=== PATIENT | female | born 1965 | race Caucasian/White ===

== ENCOUNTER 2018-03-05 13:40 | Emergency (ER) | payer BC ==
--- NOTE | 2018-03-05 14:07 | UC ---
Respiratory Complaint HPI - HPI Summary HPI Summary: 52 y/o female presents to the urgent care c/o productive cough w/ yellowish phlegm, sore throat , body aches, nasal congestion w/ pressure, and fever since 03/01/2018. Pt reports fever is on and off. Pain w/ swallowing is /10. Pt has taking OTC medications to alleviate symptoms w/o any relief. Pt states symptoms started w/ common cold and now it seems to move to her chest. Pt denies SON, wheezing, chest pain, abdominal pain , N/V/D. LMP: 02/04/2018 on control. - History of Current Complaint Hx Obtained From: Patient Hx Last Menstrual Period: 01/26/2018 Onset/Duration: Gradual Onset, Lasting Days - 5 days, Still Present, Worse Since - yesterday Timing: Constant Severity Initially: Mild Severity Currently: Moderate Pain Intensity: 7 - sore throat Pain Scale Used: 0-10 Numeric Character: Cough: Nonproductive Aggravating Factors: Recumbent Position Alleviating Factors: OTC Meds Associated Signs And Symptoms: Positive: Fever, Chills, URI, Nasal Congestion, Sinus Discomfort. Negative: Dyspnea - Risk Factors Pulmonary Embolism Risk Factors: Negative Cardiac Risk Factors: Negative Pseudomonas Risk Factors: Negative Tuberculosis Risk Factors: Negative <Yumiko Pathak - Last Filed: 03/06/18 00:19> <Douglas Aceves - Last Filed: 03/06/18 07:11> - History of Current Complaint Chief Complaint: UCRespiratory Stated Complaint: URI Time Seen by Provider: 03/05/18 13:56 - Allergies/Home Medications Allergies/Adverse Reactions: Allergies Allergy/AdvReac Type Severity Reaction Status Date / Time codeine Allergy Vomiting Verified 03/05/18 13:54 Home Medications: Home Medications Phenylephrine/Dm/Acetaminop/GG [Severe Cold Multi-Symptom Cplt] 03/05/18 [ History] PMH/Surg Hx/FS Hx/Imm Hx Previously Healthy: Yes - Pt denies PMHX - Surgical History Surgical History: None - Family History Known Family History: Positive: Hypertension - Social History Occupation: Employed Full-time Lives: With Family Alcohol Use: Daily Substance Use Type: None Smoking Status (MU): Never Smoked Tobacco <Yumiko Pathak - Last Filed: 03/06/18 00:19> Review of Systems Constitutional: Fever, Chills, Other - body aches Skin: Negative Eyes: Negative ENT: Sore Throat, Nasal Discharge, Sinus Congestion, Sinus Pain/Tenderness Respiratory: Cough - dry Cardiovascular: Negative Gastrointestinal: Negative Genitourinary: Negative Motor: Negative Neurovascular: Negative Musculoskeletal: Negative Neurological: Headache Psychological: Negative Is Patient Immunocompromised?: No All Other Systems Reviewed And Are Negative: Yes <AckermanNeetuYumiko gray - Last Filed: 03/06/18 00:19> Physical Exam - Summary Physical Exam Summary: VITAL SIGNS: Reviewed. GENERAL: Patient is a well developed and nourished female who is sitting comfortable in the examining table. Patient is not in any acute respiratory distress. HEAD AND FACE: No signs of trauma. No ecchymosis, hematomas or skull depressions. No sinus tenderness. EYES: PERRLA, EOMI x 2, No injected conjunctiva, no nystagmus. No photophobia. EARS: Hearing grossly intact. Ear canals and tympanic membranes are within normal limits. Nose: edematous and erythematous nasal mucosa w/ clear nasal discharge. MOUTH: Positive no erythema, no tonsillar enlargement. Uvula in midline. NECK: Supple, trachea is midline, Positive anterior cervical lymphadenopathy, no JVD, no carotid bruit, no c-spine tenderness, neck with full ROM. No meningeal signs, no Kernig's or brudzinskis signs. CHEST: Symmetric, no tenderness at palpation LUNGS: Positive breath sound bilaterally. Mild posterior upper lungs scattered rhonchi, No wheezing or crackles. CVS: Regular rate and rhythm, S1 and S2 present, no murmurs or gallops appreciated. ABDOMEN: Soft, non-tender. No signs of distention. No rebound no guarding, and no masses palpated. Bowel sounds are normal. EXTREMITIES: FROM in all major joints, no edema, no cyanosis or clubbing. NEURO: Alert and oriented x 3. No acute neurological deficits. Speech is normal and follows commands. SKIN: Dry and warm Triage Information Reviewed: Yes Vital Signs: Initial Vital Signs Temp 99.2 F 03/05/18 13:49 Pulse 73 03/05/18 13:49 Resp 16 03/05/18 13:49 BP 159/114 03/05/18 13:49 Pulse Ox 98 07/02/18 13:49 <Yumiko Pathak - Last Filed: 03/06/18 00:19> Vital Signs: Initial Vital Signs Temp 99.2 F 03/05/18 13:49 Pulse 73 03/05/18 13:49 Resp 16 03/05/18 13:49 BP 159/114 03/05/18 13:49 Pulse Ox 98 03/05/18 13:49 <Douglas Aceves - Last Filed: 03/06/18 07:11> Diagnostic Evaluation - Laboratory O2 Sat by Pulse Oximetry: 98 <Yumiko Pathak - Last Filed: 03/06/18 00:19> Respiratory Course/Dx - Course Course Of Treatment: 52 y/o female presents to the urgent care c/o productive cough w/ yellowish phlegm, sore throat , body aches, nasal congestion w/ pressure, and fever since 03/01/2018. Pt reports fever is on and off. Pain w/ swallowing is 02/11. Pt has taking OTC medications to alleviate symptoms w/o any relief. Pt states symptoms started w/ common cold and now it seems to move to her chest. Pt denies SON, wheezing, chest pain, abdominal pain , N/V/D. LMP: 02/04/2018 on control. Hx obtained. Pt w/ mild upper posterior lungs rhochi. Pt declined chest X-ray since her insurance done't cover for it. Influenza A&B ordered: negative. Pt with Acute bronchitis on examination. Pt Rx Z-temo PO and Tessalon tabs for cough. Pt advised to increase fluid intake and eat well. if not improvement or worsening of symptoms to return to the urgent care or f/u with PCP for further management. Pt's BP is elevated today advised to decrease salt in diet, monitor BP and f/u with PCP for further management. Pt understood and agreed with plan of care. - Differential Dx/Diagnosis Differential Diagnosis/HQI/PQRI: Asthma, Bronchitis, Influenza, Sinusitis, Other - pneumonia Provider Diagnoses: 1- Acute bronchitis. 2-cough. 3- Elevated BP w/o Hx of HTN <Yumiko Pathak - Last Filed: 03/06/18 00:19> Discharge - Sign-Out/Discharge Documenting (check all that apply): Discharge/Admit/Transfer - D/C home - Billing Disposition and Condition Condition: STABLE Disposition: Home <Yumiko Pathak - Last Filed: 03/06/18 00:19> - Billing Disposition and Condition Condition: STABLE Disposition: Home <Douglas Aceves - Last Filed: 03/06/18 07:11> - Discharge Plan Condition: Stable Disposition: HOME Prescriptions: Azithromyxin TEMO (NF) [Z-Temo (Zithromax) 250 mg tabs #6] 2 tab PO .TODAY, THEN 1 DAILY #6 tab Benzonatate CAP* [Tessalon 100 MG CAP*] 100 mg PO TID #21 cap Patient Education Materials: Acute Bronchitis (ED), Low-Sodium Diet (ED) Referrals: [facility] [place] [facility] [Outside] - 3 Days Additional Instructions: Influenza A&B is negative 1-Please take full course of antibiotic to avoid resistance. 2-Take Tessalon PO tabs as directed to alleviate cough. Increase fluid intake, rest and eat well. 3- If symptoms do not improve or worsen or your develop SOB with fever and severe wheezing please go immediately to the ER further evaluation and treatment. 4- F/u with your PCP in 3 days if not improving for further management. 5-Your BP is elevated today. please decrease salt in your diet, monitor BP and if it continues to be elevated please f/u with your PCP for further management Per institutional requirements, I have reviewed the chart, however, I was not consulted specifically or made aware of this patient by the above midlevel provider. I did not personally evaluate, interact with , or disposition this patient.
== END 2018-03-05 15:11 | disposition home or self-care (01) ==
LOC: UCEAST 13:40
DX: J20.9 Acute bronchitis, unspecified (principal); R05 Cough; R03.0 Elevated blood-pressure reading, without diagnosis of hypertension; Z88.5 Allergy status to narcotic agent
CPT/HCPCS: 99202; G0463

== ENCOUNTER 2018-03-16 16:40 | Emergency (ER) | payer BC ==
[2018-03-16 16:55] VITALS: BP 154/104
--- NOTE | 2018-03-16 17:17 | UC ---
Complaint Female HPI - HPI Summary HPI Summary: 4 days of pain and burning with urination,, has low back but no flank pain, no fevers, chills, nausea or vomiting - History Of Current Complaint Chief Complaint: UCGU Stated Complaint: BURNING URINATION Time Seen by Provider: 03/16/18 17:01 Hx Obtained From: Patient Hx Last Menstrual Period: [id number] ?: No Onset/Duration: Gradual Onset, Lasting Days - 4, Still Present Timing: Constant Pain Intensity: 4 Pain Scale Used: 0-10 Numeric Character: Burning Aggravating Factor(s): Urination Alleviating Factor(s): Nothing Associated Signs And Symptoms: Positive: Negative - Allergies/Home Medications Allergies/Adverse Reactions: Allergies Allergy/AdvReac Type Severity Reaction Status Date / Time codeine Allergy Vomiting Verified 03/16/18 16:56 Home Medications: Home Medications Ibuprofen TAB* [Motrin TAB* 400 MG] 400 mg PO Q6H PRN 03/16/18 [History Confirmed 03/16/18] PMH/Surg Hx/FS Hx/Imm Hx Previously Healthy: Yes - Surgical History Surgical History: None - Family History Known Family History: Positive: Hypertension - Social History Occupation: Employed Full-time Lives: With Family Alcohol Use: Daily Substance Use Type: None Smoking Status (MU): Never Smoked Tobacco Review of Systems Constitutional: Negative Skin: Negative Eyes: Negative ENT: Negative Respiratory: Negative Cardiovascular: Negative Gastrointestinal: Negative Genitourinary: Dysuria, Frequency, Urgency Motor: Negative Neurovascular: Negative Musculoskeletal: Negative Neurological: Negative Psychological: Negative Is Patient Immunocompromised?: No All Other Systems Reviewed And Are Negative: Yes Physical Exam Triage Information Reviewed: Yes Appearance: Well-Appearing, No Pain Distress, Well-Nourished Vital Signs: Initial Vital Signs Temp 99.9 F 03/16/18 16:50 Pulse 67 03/16/18 16:50 Resp 16 03/16/18 16:50 BP 154/104 03/16/18 16:50 Pulse Ox 100 03/16/18 16:50 Vital Signs Reviewed: Yes Eye Exam: Normal Eyes: Positive: Conjunctiva Clear ENT Exam: Normal ENT: Positive: Normal ENT inspection, Hearing grossly normal. Negative: Trismus , Muffled voice, Hoarse voice Neck exam: Normal Neck: Positive: Supple, Nontender, No Lymphadenopathy Respiratory Exam: Normal Respiratory: Positive: Chest non-tender, Lungs clear, Normal breath sounds, No respiratory distress, No accessory muscle use Cardiovascular Exam: Normal Cardiovascular: Positive: RRR, No Murmur, Pulses Normal, Brisk Capillary Refill Abdominal Exam: Normal Abdomen Description: Positive: No Organomegaly, Soft. Negative: CVA Tenderness (R), CVA Tenderness (L), Distended, Guarding Bowel Sounds: Positive: Present Musculoskeletal Exam: Normal Musculoskeletal: Positive: Strength Intact, ROM Intact, No Edema Neurological Exam: Normal Neurological: Positive: Alert, Muscle Tone Normal Psychological Exam: Normal Skin Exam: Normal Diagnostics - Laboratory Diagnostic Studies Completed/Ordered: ua-+blood and leukoesterace Complaint Female Dx - Course Course Of Treatment: culture urine, increase fluids, pyridium prn bactrim for 5 days pcp referral made - Differential Dx/Diagnosis Provider Diagnoses: UTI Discharge - Sign-Out/Discharge Documenting (check all that apply): Patient Departure - Discharge Plan Condition: Stable Disposition: HOME Prescriptions: Phenazopyridine TAB* [Pyridium 100 mg TAB*] 100 mg PO TID PRN #9 tab PRN Reason: urinary pain/burning Sulfamethox/Trimethoprim DS* [Bactrim DS 800/160 TAB*] 1 tab PO BID #10 tab Patient Education Materials: Phenazopyridine (By mouth), Urinary Tract Infection in Women (ED), Hypertension (ED) Referrals: [facility] [Outside] - 1 Week [facility] [place] [facility] [Outside] - 1 Week - Billing Disposition and Condition Condition: STABLE Disposition: Home
--- NOTE | 2018-03-18 15:59 | UC ---
- Progress Note Progress Note: call patient ---stop Bactrim and change to Augmentin rx sent to pharmacy electronically Discharge - Sign-Out/Discharge Documenting (check all that apply): Post-Discharge Follow Up - Discharge Plan Condition: Stable Disposition: HOME Prescriptions: Phenazopyridine TAB* [Pyridium 100 mg TAB*] 100 mg PO TID PRN #9 tab PRN Reason: urinary pain/burning Sulfamethox/Trimethoprim DS* [Bactrim DS 800/160 TAB*] 1 tab PO BID #10 tab Patient Education Materials: Phenazopyridine (By mouth), Urinary Tract Infection in Women (ED), Hypertension (ED) Referrals: [facility] [Outside] - 1 Week [facility] [place] [facility] [Outside] - 1 Week - Billing Disposition and Condition Condition: STABLE Disposition: Home
== END 2018-03-16 17:24 | disposition home or self-care (01) ==
LOC: UCEAST 16:40
DX: N39.0 Urinary tract infection, site not specified (principal); Z88.5 Allergy status to narcotic agent; Z82.49 Family history of ischemic heart disease and other diseases of the circulatory system
CPT/HCPCS: 81003; 87077; 87086; 87186; 99212; G0463

== ENCOUNTER 2018-11-14 07:34 | Emergency (ER) | payer SELFPAY ==
[2018-11-14 07:53] VITALS: BP 127/101
[2018-11-14] MEDS ORDERED: Ketorolac INJ* 60 MG/2 ML VIAL IM ONE (08:09)
[2018-11-14] MEDS ORDERED: Cyclobenzaprine TAB* 10 MG PO ONE (08:09)
--- NOTE | 2018-11-14 08:14 | UC ---
Back Pain HPI - HPI Summary HPI Summary: 53-year-old woman comes in with a chief complaint of low back pain. Started 2 days ago. No known injury. Yesterday when she was twisting the pain got a lot worse. Pain is in the right lower back over the right SI joint. Denies any abdominal pain. Denies any urinary symptoms. Has not seen any blood in the urine. Pain is worse with twisting turning bending. No numbness or weakness. No change in bowel or bladder. Pain does not radiate down the leg. She's tried some [id number] medicines which only helped minimally. - History of Current Complaint Chief Complaint: UCBackPain Stated Complaint: LOWER BACK PAIN Time Seen by Provider: 11/14/18 07:50 Hx Last Menstrual Period: [id number] Pain Intensity: 7 - Allergies/Home Medications Allergies/Adverse Reactions: Allergies Allergy/AdvReac Type Severity Reaction Status Date / Time codeine AdvReac Vomiting Verified 11/14/18 07:49 Home Medications: Home Medications Acetaminophen TAB* [Tylenol TAB*] 650 mg PO Q4H PRN 11/14/18 [History Confirmed 11/14/18] Ibuprofen TAB* [Advil TAB*] 400 mg PO Q6H PRN 11/14/18 [History Confirmed ] PMH/Surg Hx/FS Hx/Imm Hx Previously Healthy: Yes - Surgical History Surgical History: None - Family History Known Family History: Positive: Hypertension - Social History Alcohol Use: Weekly Substance Use Type: None Smoking Status (MU): Never Smoked Tobacco Review of Systems All Other Systems Reviewed And Are Negative: Yes Constitutional: Positive: Negative Skin: Positive: Negative Eyes: Positive: Negative ENT: Positive: Negative Respiratory: Positive: Negative Cardiovascular: Positive: Negative Gastrointestinal: Positive: Negative. Negative: Abdominal Pain Genitourinary: Positive: Negative Motor: Positive: Negative Neurovascular: Positive: Negative Musculoskeletal: Positive: Other: - SEE HPI Neurological: Positive: Negative Psychological: Positive: Negative Is Patient Immunocompromised?: No Physical Exam Triage Information Reviewed: Yes Appearance: Well-Appearing, Well-Nourished, Pain Distress - MODERATE WITH ROM Vital Signs: Initial Vital Signs Temp 98.4 F 11/14/18 07:46 Pulse 98 11/14/18 07:46 Resp 21 11/14/18 07:46 BP 127/101 11/14/18 07:46 Pulse Ox 100 03/13/19 07:46 Vital Signs Reviewed: Yes Eye Exam: Normal Eyes: Positive: Conjunctiva Clear Neck exam: Normal Neck: Positive: Supple Respiratory: Positive: Lungs clear, Normal breath sounds, No respiratory distress Cardiovascular: Positive: RRR Abdomen Description: Positive: Nontender, Soft Bowel Sounds: Positive: Present Musculoskeletal: Positive: Other: - TENDER TO PALPATION OVER RT SI Neurological Exam: Normal Neurological: Positive: Alert, Muscle Tone Normal Psychological Exam: Normal Psychological: Positive: Normal Response To Family, Age Appropriate Behavior Skin Exam: Normal Back Pain Course/Dx - Differential Dx/Diagnosis Provider Diagnosis: Low back pain Discharge - Sign-Out/Discharge Documenting (check all that apply): Patient Departure All imaging exams completed and their final reports reviewed: No Studies - Discharge Plan Condition: Stable Disposition: HOME Prescriptions: Cyclobenzaprine TAB* [Flexeril 10 MG TAB*] 10 mg PO TID PRN #15 tab MDD 3 PRN Reason: Pain Patient Education Materials: Acute Low Back Pain (ED), Lower Back Exercises (ED ) Referrals: [facility] [place] [facility] [Outside] Additional Instructions: FOLLOW UP WITH YOUR DOCTOR IF NOT COMPLETELY IMPROVED. GET RECHECKED FOR ANY WORSENING OF YOUR CONDITION; PAIN, WEAKNESS, NUMBNESS, YOU FEEL ILL, DIFFICULTY CONTROLLING BOWEL OR BLADDER OR QUESTIONS OR CONCERNS. - Billing Disposition and Condition Condition: STABLE Disposition: Home
== END 2018-11-14 08:53 | disposition home or self-care (01) ==
LOC: UCCORT 07:34
DX: M54.5 Low back pain (principal); Z88.5 Allergy status to narcotic agent
CPT/HCPCS: 96372; 99212; A9270-GY; G0463; J1885